=== PATIENT | male | born 1980 | race Caucasian/White ===

== ENCOUNTER → 2016-06-30 | Outpatient (CLI) | payer MEDICAID ==
--- NOTE | 2016-06-30 17:16 | DX ---
PA and lateral chest History: Shortness of breath. Comparison: None available. Findings: There is minimal linear scarring/atelectasis in the left lung base. The lungs are otherwis e clear. There is no pneumothorax or pleural effusion. The heart and pulmonary vasculature are maribeth l. The bones are normal. Impression: No visible etiology for the patient's symptoms.
== END ==
LOC: FIMAGING 14:54
PROVIDERS: ATTEND Internal Medicine Infectious Disease
DX: R06.02 Shortness of breath (principal)